=== PATIENT | male | born 1985 | race Caucasian/White ===

== ENCOUNTER 2017-04-04 06:27 | Emergency (ER) | END 2017-04-04 08:20 | disposition left against medical advice (07) ==

== ENCOUNTER 2017-09-25 14:08 | Emergency (ER) | END 2017-09-25 19:10 | disposition home or self-care (01) ==

== ENCOUNTER 2018-03-15 20:19 | Emergency (ER) | payer SELFPAY ==
[~2018-03-15] VITALS: Ht 177.8 cm; Wt 105.6 kg
[~2018-03-15 20:19] MED LIST: CEPH-443 PO; IBUP-1542 PO; INSU100I12 SQ
[2018-03-15 20:37] VITALS: BP 175/94; PULSE 106; RESP 18; Ht 177.8 cm; Wt 105.6 kg
[2018-03-15] MEDS ORDERED: KETOROLAC 30 MG INJ IM STA (23:03)
[2018-03-15] MEDS ORDERED: LIDOCAINE 1% (MPF) 5 ML VIAL INFIL ONE (23:30)
[2018-03-15] MEDS ORDERED: CEFTRIAXONE 500 MG INJ IM ONE (23:30)
--- NOTE | 2018-03-16 00:57 | ERD ---
ER Documentation Chief Complaint Chief Complaint L scapular cyst/abscess; warm to touch;hx DM HPI 32-year-old male presents for left upper back abscess times 3 days. He states that he has had the abscess for years however was small. He states that has been worsening for the past few days. He has history of diabetes. He states that he does not take any medication for diabetes he denies any fevers or chills. Denies chest pain or shortness of breath. ROS All systems reviewed and are negative except as per history of present illness. Medications Home Meds Active Scripts Insulin Lispro (Humalog Kwikpen U-100) 100 Unit/1 Ml Insuln.pen, 100 UNIT SQ BEFORE MEALS, #1 EA Prov:SIMBA VAZQUEZ MD 09/25/17 Cephalexin* (Keflex*) 500 Mg Capsule, 500 MG PO QID for 5 Days, CAP Prov:SIMBA VAZQUEZ MD 09/25/17 Ibuprofen* (Ibuprofen*) 600 Mg Tablet, 600 MG PO Q8 PRN for PAIN AND/OR INFLAMMATION, #60 TAB Prov:SIMBA VAZQUEZ MD 09/25/17 Reported Medications Insulin Lispro (Humalog Kwikpen U-100) 100 Unit/1 Ml Insuln.pen, 10 UNIT SQ DAILY, EA 09/25/17 Allergies Allergies: Coded Allergies: No Known Allergy (Unverified , 09/25/17) PMhx/Soc History of Surgery: No Anesthesia Reaction: No Hx Neurological Disorder: No Hx Respiratory Disorders: No Hx Cardiac Disorders: No Hx Psychiatric Problems: No Hx Miscellaneous Medical Probl: Yes (DM) Hx Alcohol Use: Yes Hx Substance Use: Yes (occasional Meth use) Hx Tobacco Use: Yes (2 pk/day.) Smoking Status: Current every day smoker Physical Exam Vitals Vital Signs Date Temp Pulse Resp B/P (MAP) Pulse Ox O2 O2 Flow FiO2 Time Delivery Rate 03/15/18 98.8 106 18 175/94 99 20:37 (121) Physical Exam Const: No acute distress Resp: Clear to auscultation bilaterally Cardio: Regular rate and rhythm, no murmurs Skin: Left upper back abscess about 3 cm, increased warmth with underlying fluctuance noted. Back: No midline or flank tenderness Ext: No cyanosis, or edema Neur: Awake and alert Psych: Normal Mood and Affect Results 24 hrs Current Medications Medications Dose Sig/Prem Start Time Status Last (Trade) Ordered Route PRN Stop Time Admin Dose Reason Admin Ceftriaxone 500 mg ONCE ONCE 03/15/18 DC 03/15/18 Sodium IM 23:30 03/15/18 23:21 (Rocephin) 23:31 Ketorolac 30 mg ONCE STAT 03/15/18 DC 03/15/18 Tromethamine IM 23:03 03/15/18 23:21 (Toradol) 23:05 Lidocaine 5 ml ONCE ONCE 03/15/18 DC (Xylocaine INFIL 23:30 03/15/18 1% (Mpf)) 23:31 Procedures/MDM Medical Decision Making: Differential diagnosis includes but not limited to abscess, cyst, cellulitis. Patient appeared well on physical examination, nontoxic appearing. Examination reveals a left upper back abscess about 2 cm. Patient was given an IM shot of Rocephin, Toradol and supplies were assembled for an incision and drainage however the patient eloped prior to the procedure. Disclaimer: Inadvertent spelling and grammatical errors are likely due to EHR/dictation software use and do not reflect on the overall quality of patient care. Also, please note that the electronic time recorded on this note does not necessarily reflect the actual time of the patient encounter. APOLINAR SERRANO DO Mar 16, 2018 00:57
== END 2018-03-16 01:24 | disposition left against medical advice (07) ==
LOC: FTE 20:19
DX: L02.212 Cutaneous abscess of back [any part, except buttock and flank] (principal); E11.9 Type 2 diabetes mellitus without complications; F17.210 Nicotine dependence, cigarettes, uncomplicated; Z79.4 Long term (current) use of insulin
CPT/HCPCS: J0696; J1885; 96372